=== PATIENT | female | born 1995 | race American Indian/Alaskan Native ===

== ENCOUNTER 2017-02-12 17:11 | Emergency (ER) | payer OTHER ==
[2017-02-12] MEDS ORDERED: ATIVAN PO ONE (17:58)
[2017-02-12] MEDS ORDERED: TYLENOL PO ONE (17:58)
[2017-02-12 20:39] LABS: Hematocrit 40.3 % (36.0-42.0); Hemoglobin 13.1 gm/dl (12.0-16.0); Mean Corpuscular HGB Conc 33 % (30-34); Mean Corpuscular Hemoglobin 30 pg (28-32); Mean Corpuscular Volume 93 fl (79-97); Platelet Count 293 K/mm3 (140-440); Red Blood Count 4.34 M/mm3 (3.65-5.03); Red Cell Distribution Width 13.5 % (13.2-15.2)
[2017-02-12] MEDS ORDERED: PERCOCET 5/325 PO ONE (20:43)
[2017-02-12 20:48] LABS: Anion Gap 17 mmol/L; BUN/Creatinine Ratio 15.71; Blood Urea Nitrogen 11 mg/dL (7-17); Calcium 9.1 mg/dL (8.4-10.2); Carbon Dioxide 25 mmol/L (22-30); Chloride 98.6 mmol/L (98-107); Glucose 96 mg/dL (65-100); Potassium 3.9 mmol/L (3.6-5.0); Sodium 137 mmol/L (137-145)
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
[2017-02-12] MEDS ORDERED: VALIUM PO ONE (23:26)
[2017-02-13 00:01] VITALS: BP 106/71
--- NOTE | 2017-02-13 07:54 | XRay Report ---
AP CHEST: HISTORY: chest pain AP view of the chest demonstrates a normal mediastinal and cardiac contour with clear lungs and normal bony and soft tissue structures. IMPRESSION: Unremarkable AP chest.
== END 2017-02-12 23:50 | disposition home or self-care (01) ==
LOC: ED 17:11 → EDBD 17:11 → ED 23:50
DX: M62.830 Muscle spasm of back (principal); M41.9 Scoliosis, unspecified; Z88.8 Allergy status to other drugs, medicaments and biological substances; V49.49XA Driver injured in collision with other motor vehicles in traffic accident, initial encounter; Y92.488 Other paved roadways as the place of occurrence of the external cause; Y93.89 Activity, other specified; Y99.8 Other external cause status
CPT/HCPCS: 36415; 71010; 72125; 72131; 80048; 84703; 85027